=== PATIENT | female | born 1965 | race Caucasian/White ===

== ENCOUNTER 2017-08-04 12:13 | Emergency (ER) | payer OTHER ==
[2017-08-04 12:21] VITALS: BP 173/82; PULSE 90; RESP 18; TEMP 98; O2SAT 99
--- NOTE | 2017-08-04 12:38 | ED PDOC ---
Lower Extremity Pain/Injury Time Seen by Provider: 08/04/17 12:23 Chief Complaint (Nursing): Lower Extremity Problem/Injury Chief Complaint (Provider): Left leg pain History Per: Patient, Admitting Coordinator (Marilu Herrera RN at bedside for azerbaijani translation) Onset/Duration Of Symptoms: Days (x3) Current Symptoms Are (Timing): Still Present Additional Complaint(s): 52 y/o female with no significant PMHx presenting for evaluation of atraumatic left leg pain x 3 days. Patient reports taking Motrin with relief and states sometimes the swelling makes her toes feel numb. She denies fever, chills, and recent travel. She reports swelling to left ankle and to calf with no associated left hip or knee pain. Denies recent travel. PMD: Dr. Rosales Buchanan MD Past Medical History Reviewed: Historical Data, Nursing Documentation, Vital Signs Vital Signs: Last Vital Signs Temp 98 F 08/04/17 12:17 Pulse 90 08/04/17 12:17 Resp 18 08/04/17 12:17 BP 173/82 H 08/04/17 12:17 Pulse Ox 99 08/04/17 12:17 - Medical History PMH: Asthma, HTN - Surgical History Other surgeries: tubal lugation - Family History Family History: States: No Known Family Hx - Living Arrangements Living Arrangements: With Family - Social History Current smoker - smoking cessation education provided: No Alcohol: None Drugs: Denies - Home Medications Home Medications: Ambulatory Orders Medication Instructions Recorded Losartan/Hydrochlorothiazide 1 tab PO DAILY 08/06/15 [Losartan Potassium-Hydrochlorothiazide 12.5 M] Omeprazole [Prilosec] 40 mg PO DAILY 08/06/15 metFORMIN [glucOPHAGE] 500 mg PO DAILY 08/06/15 Ibuprofen [Motrin Tab] 800 mg PO Q8 PRN #20 tab 08/04/17 - Allergies Allergies/Adverse Reactions: Allergies Allergy/AdvReac Type Severity Reaction Status Date / Time iodine Allergy SHORTNESS Verified 08/04/17 12:17 OF BREATH Wells Criteria for PE - Wells Criteria for Pulmonary Embolism Clinical Signs and Symptoms of DVT: Yes P.E is #1 Diagnosis, or Equally Likely: No Heart Rate >100: No Immobilization at least 3 days;Surgery previous 4 weeks: No Previous, objectively diagnosed PE or DVT: No Hemoptysis: No Malignancy w/treatment within 6 months, or palliative: No Total Score: 3 Review of Systems ROS Statement: Except As Marked, All Systems Reviewed And Found Negative Constitutional: Negative for: Fever, Chills Cardiovascular: Negative for: Chest Pain Respiratory: Negative for: Shortness of Breath Gastrointestinal: Negative for: Nausea, Vomiting Genitourinary Female: Negative for: Dysuria Musculoskeletal: Positive for: Other (Left leg pain, denies trauma or injury). Negative for: Neck Pain, Back Pain Physical Exam - Reviewed Nursing Documentation Reviewed: Yes Vital Signs Reviewed: Yes - Physical Exam Appears: Positive for: Well, Non-toxic, No Acute Distress Skin: Positive for: Normal Color. Negative for: Rash Eye Exam: Positive for: Normal appearance Cardiovascular/Chest: Positive for: Regular Rate, Rhythm Respiratory: Positive for: Normal Breath Sounds. Negative for: Wheezing, Respiratory Distress Extremity: Positive for: Normal ROM (of left hip and knee, decreased to left ankle), Tenderness (and swelling left lateral malleolus), Calf Tenderness (left) , Other (nontender left foot, normal distal sensation, normal cap refill). Negative for: Deformity Neurologic/Psych: Positive for: Alert, Oriented - ECG O2 Sat by Pulse Oximetry: 99 (RA) Pulse Ox Interpretation: Normal - Other Rad Doppler left leg X-Ray: Read By Radiologist X-Ray Interpretation: no DVT X-ray left ankle X-Ray: Interpreted by Me, Viewed By Me X-Ray Interpretation: no acute fx, no dis Medical Decision Making Medical Decision Makin:28 Impression: 52 y/o female with left leg pain Plan: -Toradol 30mg IM -Left leg doppler -Left Ankle X-ray Patient reports improvement pain after Toradol injection. Patient aware of all diagnostic testing results, all questions answered. Crutches given. See procedure note. Prescription provided for Motrin and patient was referred to podiatry clinic for follow-up. Scribe Attestation: Documented by Moise Aguiar, acting as a scribe for Geeta Bahena PA-C. Provider Scribe Attestation: All medical record entries made by the scribe were at my direction and personally dictated by me. I have reviewed the chart and agree that the record accurately reflects my personal performance of the history, physical exam, medical decision making, and the department course for this patient. I have also personally directed, reviewed, and agree with the discharge instructions and disposition. Procedures - Splinting Location: left ankle Pre-Made Type: jose wrap, aircast Pre-Proc Neuro Vasc Exam: normal Post-Proc Neuro Vasc Exam: normal Disposition - Clinical Impression Clinical Impression: Ankle sprain - Patient ED Disposition Is Patient to be Admitted: No Counseled Patient/Family Regarding: Studies Performed, Diagnosis, Need For Followup, Rx Given - Disposition Referrals: Podiatry Clinic [Outside] Disposition: Routine/Home Disposition Time: 13:39 Condition: STABLE Additional Instructions: Ice, rest and elevate affected area. Take prescription meds as directed as needed for pain. Follow-up with podiatry clinic for any persistent symptoms. Prescriptions: Ibuprofen [Motrin Tab] 800 mg PO Q8 PRN #20 tab PRN Reason: Pain, Moderate (4-7) Instructions: Ankle Sprain, How to Use Crutches, Going Up and Down Curbs or Stairs With a Walker or Crutches Forms: [facility] (Anguillan), [facility] School/Work Excuse, [facility] [facility] (B[place]i) Print Language: IRAQI
--- NOTE | 2017-08-04 13:10 | US ---
PROCEDURE: LEFT LOWER EXTREMITY VENOUS ULTRASOUND HISTORY: pain, swelling left leg COMPARISON: None available. TECHNIQUE: Grayscale and duplex Doppler ultrasound of the left lower extremity major deep veins is been performed including but not limited to graded compression and augmentation. FINDINGS: Good compressibility and augmentation as well as normal phasic blood flow was identified in the left common and superficial femoral as well as popliteal veins. Posterior tibial vein appears patent as well. The greater saphenous vein appears unremarkable as imaged. No ultrasound evidence to suggest deep venous thrombosis left lower extremity. IMPRESSION: No ultrasound evidence to suggest deep venous thrombosis left lower extremity.
--- NOTE | 2017-08-04 17:12 | RAD ---
PROCEDURE: Left Ankle Radiographs. HISTORY: trauma COMPARISON: None FINDINGS: BONES: No acute fracture or destructive bony lesion identified. JOINTS: Normal. No osteoarthritis. Ankle mortise maintained. Talar dome intact SOFT TISSUES: [id number] lateral malleolar soft tissue edema identified with soft tissues otherwise unremarkable appearing. OTHER FINDINGS: None. IMPRESSION: Lateral malleolar soft edema. No acute fracture or dislocation left ankle.
== END 2017-08-04 13:57 | disposition home or self-care (01) ==
LOC: H.ER 12:13
DX: S93.402A Sprain of unspecified ligament of left ankle, initial encounter (principal); X58.XXXA Exposure to other specified factors, initial encounter; I10 Essential (primary) hypertension; J45.909 Unspecified asthma, uncomplicated; E11.9 Type 2 diabetes mellitus without complications; Z79.84 Long term (current) use of oral hypoglycemic drugs
CPT/HCPCS: 73610; 93971; 96372; 99285; J1885

== ENCOUNTER 2018-01-28 07:31 | Day surgery (SDC) | payer OTHER ==
[2018-01-28] MEDS ORDERED: Lactated Ringer's 500 ML IV ONE (08:03)
[2018-01-28] MEDS ORDERED: Midazolam 2 MG/2 ML VIAL ONE (09:26)
[2018-01-28] MEDS ORDERED: Propofol 10 mg/ml Inj (20 ML) ONE (09:26)
[2018-01-28 10:01] VITALS: TEMP 96.3
[2018-01-28 10:40] VITALS: BP 110/72; PULSE 77; RESP 20; O2SAT 96
== END 2018-01-28 10:41 | disposition home or self-care (01) ==
LOC: H.ENDO 07:31
PROVIDERS: ATTEND Internal Medicine Gastroenterology
DX: Z12.11 Encounter for screening for malignant neoplasm of colon (principal); J45.909 Unspecified asthma, uncomplicated; E11.9 Type 2 diabetes mellitus without complications; I10 Essential (primary) hypertension; K64.8 Other hemorrhoids
CPT/HCPCS: 45378; J2001; J2250; J2704; J7120